=== PATIENT | male | born 1980 | race Caucasian/White ===

== ENCOUNTER 2022-07-01 15:12 | Outpatient (CLI) | payer BC, SELFPAY ==
[2022-07-01 22:19] LABS: Albumin* 4.2 g/dL (3.3-5.0); Chloride* 105 mmol/L (96-114)
[2022-07-01 22:20] LABS: Potassium* 3.7 mmol/L (3.6-5.1); Sodium* 143 mmol/L (135-149)
[2022-07-01 22:22] LABS: Alanine Aminotransferase* 110 U/L (4-50); Alkaline Phosphatase* 101 U/L (40-150); Bilirubin Total* 1.4 mg/dL (0.1-1.5); Blood Urea Nitrogen* 9 mg/dL (5-24); Carbon Dioxide* 30 mmol/L (20-32); Cholesterol* 178 mg/dL (90-199); Creatinine* 0.8 mg/dL (0.5-1.5); Estimated Glomerular Filt Rate 113 ml/min; Glucose* 113 mg/dL (60-115); Total Protein* 7.5 g/dL (6.0-8.3)
[2022-07-01 22:23] LABS: HDL Cholesterol* 57 mg/dL (>=40); LDL Cholesterol Calculated 86 mg/dL (<100); Triglycerides* 174 mg/dL (40-149)
[2022-07-01 22:43] LABS: Creatinine Urine > 346.5 mg/dL
[2022-07-01 23:00] LABS: Aspartate Amino Transferase* 100 U/L (12-35)
[2022-07-01 23:14] LABS: Microalbumin Creatinine Ratio 0 mg/g (0-30); Microalbumin Urine 39 mg/dL
== END 2022-07-01 15:13 | disposition home or self-care (01) ==
PROVIDERS: PCP Family Medicine; Visit Provider Family Medicine
DX: Z00.00 Encounter for general adult medical examination without abnormal findings (principal); I10 Essential (primary) hypertension; R53.83 Other fatigue; E66.01 Morbid (severe) obesity due to excess calories; E78.1 Pure hyperglyceridemia
CPT/HCPCS: 80053; 80061; 82043; 82570; 84443

== ENCOUNTER 2023-03-20 10:00 | Outpatient (CLI) | payer BC, SELFPAY | END 2023-03-20 10:01 | disposition home or self-care (01) | PROVIDERS: PCP Family Medicine; Visit Provider Family Medicine | DX: Z00.00 Encounter for general adult medical examination without abnormal findings (principal); E66.01 Morbid (severe) obesity due to excess calories; E78.1 Pure hyperglyceridemia; I10 Essential (primary) hypertension; D58.2 Other hemoglobinopathies | CPT/HCPCS: 80053; 82043; 82570; 84156 ==